=== PATIENT | male | born 1970 | race African-American/Black ===

== ENCOUNTER 2017-06-19 13:40 | Emergency (ER) | payer OTHER ==
[~2017-06-19] VITALS: Ht 185.4 cm; Wt 102.6 kg
[~2017-06-19 13:40] MED LIST: AMLODIPINE BESY10 MG PO; ANAPROX DS550 M1 PO; CATAPRES0.1 MG PO; CLEOCIN300 MG PO; COLACE100 MG PO; COREG CR40 MG PO; Ecotrin PO; FLEXERIL5 MG PO; Flexeril PO; HCTZ PO; HYCODAN SYRUP480 ML PO; HYDROCHLOROTHIA25 MG PO; HYDROCODON-ACE1 EAC7 PO; IBUPROFEN800 MG PO; LISINOPRIL40 MG PO; LOPRESSOR50 MG PO; MOTRIN800 MG PO; PERCOCET 5/31 TABLET PO; PROCTOFOAM-HC10 GM PR; SIMVASTATIN40 MG PO; SPIRONOLACTONE100 MG PO; TRAMADOL HCL50 MG PO; ULTRAM50 MG PO; Ultram PO; ZESTRIL,PRINIVI10 MG PO; ZITHROMAX Z-PA250 MG PO
[2017-06-19 14:27] LABS: HEMATOCRIT 48.6 % (38.0-50.0); MCH 29.5 PG (29.0-34.0); MCHC 34.2 G/DL (30.0-36.0); MCV 86.3 FL (86-99); MEAN PLAT.VOLUME 10.1 uM^3 (9.0-12.4); PLATELET COUNT 185 K/uL (156-360); RBC DIS.WIDTH-CV 12.9 % (11.8-14.6); RED BLOOD COUNT 5.63 M/uL (4.00-5.50); WHITE BLOOD COUNT 5.3 K/uL (4.1-10.2)
[2017-06-19 14:50] LABS: CHLORIDE 104 mEq/L (99-109); POTASSIUM 4.5 mEq/L (3.7-5.4); SODIUM 138 mEq/L (136-147)
[2017-06-19 14:52] LABS: GLUCOSE 98 mg/dL (70-99)
[2017-06-19 14:54] LABS: ANION GAP 9 MEQ/L (2-14); TOTAL BILIRUBIN 0.4 mg/dL (0.0-1.0)
[2017-06-19 14:56] LABS: ALKALINE PHOSPHATASE 65 IU/L (3-129); GFR ESTIMATE (CALCULATED) > 59 mL/min/
[2017-06-19 14:58] LABS: UREA NITROGEN (BUN) 16 mg/dL (9-23)
[2017-06-19 16:26] LABS: LIPASE 40 U/L (1.0-51.0)
[2017-06-19 16:26] LABS: ADD MIUA? YES; BILIRUBIN NEGATIVE; BLOOD SMALL; COLOR YELLOW ((YELLOW)); GLUCOSE (STRIP) NEGATIVE; KETONES NEGATIVE; LEUKOCYTES NEGATIVE; NITRITE NEGATIVE; PROTEIN (STRIP) NEGATIVE; SPECIFIC GRAVITY 1.016 (1.000-1.030); UROBILINOGEN 0.2 MG/DL (0.2-1.0)
[2017-06-19 16:29] LABS: BACTERIA NONE SEEN /HPF; EPITHELIAL CELLS NONE SEEN /HPF; MUCUS NONE SEEN /LPF; RED BLOOD CELLS 0-5 /HPF (0-5); UCUL ADDED? NO; WHITE BLOOD CELLS 0-5 /HPF (0-5)
[2017-06-19] MEDS ORDERED: CARAFATE1 GM PO (18:31)
[2017-06-19] MEDS ORDERED: PEPCID20 MG PO (18:31)
[2017-06-19 18:52] VITALS: BP 156/100
== END 2017-06-19 18:53 | disposition home or self-care (01) ==
LOC: EME 13:40
DX: K29.70 Gastritis, unspecified, without bleeding (principal); K76.0 Fatty (change of) liver, not elsewhere classified; F10.99 Alcohol use, unspecified with unspecified alcohol-induced disorder; I10 Essential (primary) hypertension; E78.5 Hyperlipidemia, unspecified; F17.200 Nicotine dependence, unspecified, uncomplicated
CPT/HCPCS: 74177; 80053; 81003; 83690; 85027; 99281; 99284; J7040

== ENCOUNTER 2017-08-16 22:22 | Emergency (ER) | payer OTHER ==
[~2017-08-16] VITALS: Ht 185.4 cm; Wt 103.8 kg
[~2017-08-16 22:22] MED LIST changes: +CARAFATE1 GM PO; +PEPCID20 MG PO
[2017-08-16 22:55] LABS: HEMATOCRIT 45.2 % (38.0-50.0); MCV 85.9 FL (86-99); MEAN PLAT.VOLUME 9.9 uM^3 (9.0-12.4); PLATELET COUNT 219 K/uL (156-360); RBC DIS.WIDTH-CV 12.2 % (11.8-14.6); RBC DIS.WIDTH-SD 38.5 % (39-53); RED BLOOD COUNT 5.26 M/uL (4.00-5.50); WHITE BLOOD COUNT 7.5 K/uL (4.1-10.2)
[2017-08-16 23:10] LABS: CHLORIDE 102 mEq/L (99-109); POTASSIUM 3.8 mEq/L (3.7-5.4)
[2017-08-16 23:11] LABS: SODIUM 138 mEq/L (136-147)
[2017-08-16 23:12] LABS: GLUCOSE 101 mg/dL (70-99)
[2017-08-16 23:14] LABS: ANION GAP 14 MEQ/L (2-14)
[2017-08-16 23:16] LABS: GFR ESTIMATE (CALCULATED) > 59 mL/min/; TROP-I INTERPRETATION NEGATIVE; TROPONIN-I < 0.01 ng/mL (0.0-0.30)
[2017-08-16 23:17] LABS: UREA NITROGEN (BUN) 20 mg/dL (9-23)
[2017-08-16] MEDS ORDERED: AUGMENTIN875 MG PO (23:52)
[2017-08-16] MEDS ORDERED: PERCOCET 5/31 TABLET PO (23:52)
[2017-08-17 00:15] VITALS: BP 133/95
== END 2017-08-17 00:57 | disposition home or self-care (01) ==
LOC: EME 22:22
PROVIDERS: Physician Assistant
DX: R55 Syncope and collapse (principal); S00.83XA Contusion of other part of head, initial encounter; S01.511A Laceration without foreign body of lip, initial encounter; S80.212A Abrasion, left knee, initial encounter; M79.642 Pain in left hand; R68.84 Jaw pain; W18.30XA Fall on same level, unspecified, initial encounter; Y92.009 Unspecified place in unspecified non-institutional (private) residence as the place of occurrence of the external cause; R05 Cough; I10 Essential (primary) hypertension; E78.5 Hyperlipidemia, unspecified; F17.200 Nicotine dependence, unspecified, uncomplicated
CPT/HCPCS: 70110; 71020; 73564; 80048; 84484; 85027; 93005; 99281; 99284